=== PATIENT | female | born 1955 | race Caucasian/White ===

== ENCOUNTER 2016-11-22 21:24 | Emergency (ER) | payer OTHER ==
--- NOTE | 2016-11-22 22:50 | DIAGNOSTIC IMAGING REPORT ---
PROCEDURE: CT HEAD WITHOUT CONTRAST INDICATION: TRAUMA/INJURY TECHNIQUE: Noncontrast axial images with sagittal and coronal reformations. COMPARISON: None. FINDINGS: There is moderate extracranial soft tissue swelling and hematoma over the right parietal scalp. No evidence of skull fracture. Brain and ventricles are normal. No evidence of an acute process or hemorrhage. Sinuses and mastoids are normal. IMPRESSION: 1. Moderate extracranial soft tissue swelling and hematoma over the right parietal scalp. 2. Otherwise negative head CT. No evidence of intracranial injury. 3. Findings discussed with MOISE Gibbs at [address] scans at this facility use dose modulation, iterative reconstruction, and/or weight-based dosing when appropriate to reduce radiation dose to as low as reasonably achievable.
--- NOTE | 2016-11-22 22:54 | ED ORDER SUMMARY ---
..... Patient: JUVENAL TRACY OrderSheet [facility] VisitID: [id number] [address] [place] [address] 61y, F Registration Date/Time: 11/22/2016 ORDER SHEET Weight: 142.4 kg (stated) Allergies: Codeine, Demerol, Reglan GENERAL ORDERS: CT Head wo Cont Urgent (22:24 11/22/2016 EKoroleva P.A.-C) (Ack 22:29 Constanza [facility] Metal Cut Off Saw Operator) (22:50 MCampbell) Vitals (22:47 11/22/2016 EKoroleva P.A.-C) (22:56 DDavis R.N.) MEDICATION ORDERS: Tylenol PO 650 mg (NOW) (22:26 11/22/2016 EKoroleva P.A.-C) (Ack 22:28 DDavis R.N.) (22:41 DDavis R.N.) IV FLUIDS: ORDER SHEET NOTES: [Electronically signed by Jasmyn RamirezALuh-C (23:02 11/22/2016)] [Electronically signed by Zaire Alves R.N. (23:07 11/22/2016)] [Electronically locked/signed by Zaire Alves R.N. (23:07 11/22/2016)]
--- NOTE | 2016-11-22 22:54 | ED NURSING NOTES ---
Clinical Report - Nurses [facility] [address] [place] [address] 11/22/2016 21:24 Patient: JUVENAL TRACY TRIAGE Triage time 22:13. Acuity: LEVEL 4. Chief Complaint: FALL OFF A CHAIR. Alert. No acute distress. SEPSIS SCREEN: Sepsis Screen. Negative (no infection suspected/documented). AL COMA SCORE: [place] Coma Scale: 15- eyes open spontaneously (4); best verbal response- oriented x 4 (5); best motor response- obeys commands (6). --22:19 Zaire Alves R.N. 22:13 11/22/16. BP: 210/97. HR: 77. RR: 18 (regular, unlabored and normal). O2 saturation: 96% on room air. Temp: 98.3 F (oral). Pain level now: 0/10. Additional comments: denies pain. --22:19 Zaire Alves R.N. Weight: 142.4 kg stated. Height/Length: 62 inches Per Patient. BMI: 57.5. --22:14 Zaire Alves R.N. Medications NexIUM Oral. Singulair Oral. --22:17 Zaire Alves R.N. Albuterol Sulfate Inhalation. --22:17 Zaire Alves R.N. Allergies Codeine.(angioedema, itching) Demerol.(itching) Reglan. (restless) --22:16 Zaire Alves R.N. History Arrived by private vehicle. Historian: patient. Accompanied by family. This occurred today (2100). ( hit head on a "plastic table", swelling and redness to superior scalp, no bleeding, denies other injuries). No loss of consciousness. No alteration in mental status, dizziness, neck pain, back pain or trouble walking. No limited ROM present or difficulty breathing. 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 PAST MEDICAL HX: Hypertension. No history of diabetes mellitus, heart disease or stroke. SOCIAL HX: Never smoker. No alcohol use or drug use. SELF HARM ASSESSMENT: A self harm assessment was performed. The patient answered "no" to the question "Have you recently felt down, depressed, or hopeless?", "Have you noticed less interest or pleasure in doing things?", "Do you have thoughts of harming or killing yourself?", "Are you here because you tried to hurt yourself?", "Have you ever tried to hurt yourself before today?" and "Have you recently had thoughts about harming or killing others?". NUTRITIONAL RISK ASSESSMENT: The nutritional risk assessment revealed no deficiencies. FUNCTIONAL ASSESSMENT: Functional assessment: no impairments noted. LEARNING NEEDS ASSESSMENT: The learning needs assessment revealed no barriers. SKIN INTEGRITY ASSESSMENT: Skin integrity risk assessment completed. No skin integrity risk identified. --22:19 Zaire Alves R.N. PROBLEMS: Gastroesophageal Reflux. COPD - Chronic Obstructive Pulmonary Disease. Sprain. Hypertension. Asthma. Reflux. --22:17 Zaire Alves R.N. ADDITIONAL SURGERIES: Cholecystectomy. Hysterectomy. Oophorectomy. Shoulder Surgery. --22:17 Zaire Alves R.N. Interventions ID and allergy band on patient. To treatment room. --22:19 Zaire Alves R.N. PHYSICAL ASSESSMENT GENERAL / NEURO / PSYCH: Alert. Oriented X 4. Appears in no acute distress. RESPIRATORY: Respirations not labored. Chest nontender. CVS: Capillary refill less than 2 seconds. GI / : Abdomen soft. SKIN: Skin intact. Skin is warm and dry. --22:20 Zaire Alves R.N. NURSING PROGRESS NOTES Cold pack applied. Reassurance given. Two patient identifiers checked. Call light placed in reach. Side rails up x 1. Bed placed in lowest position. Brakes of bed on. Patient ready for evaluation- chart flagged. Patient waiting for evaluation. --22:20 Zaire Alves R.N. 22:31 11/22/2016 Tylenol (Acetaminophen) PO 650 mg given. Allergies verified and confirmed 5 rights. --22:41 Zaire Alves R.N. 22:50 11/22/16. BP: 183/81. --22:55 Milan Parnell. DISPOSITION / DISCHARGE Departure time: 23:07. No learning barriers present. Discharge instructions provided and reviewed with the patient. Reviewed warnings. Reviewed medication(s) side effects, precautions, dosing and course information. Prescription(s) given to the patient. Treatments reviewed. Reviewed referrals for followup. Patient verbalized understanding. Written instructions provided in [place]. The patient was discharged home and accompanied by spouse. She left the Emergency Department ambulatory and via private vehicle. Rivet Bucker driving. --23:07 Zaire Alves R.N. 23:07 11/22/16. RR: 18. O2 saturation: 96% on room air. Pain level now: 0/10. 22:50 11/22/16. BP: 183/81. --23:07 Zaire Alves R.N. Locked/Released at 11/22/2016 23:07 by Zaire Alves R.N.
--- NOTE | 2016-11-22 22:54 | ED ORDER SUMMARY ---
..... Patient: JUVENAL TRACY OrderSheet [facility] VisitID: [id number] [address] [place] [address] 61y, F Registration Date/Time: 11/22/2016 ORDER SHEET Weight: 142.4 kg (stated) Allergies: Codeine, Demerol, Reglan GENERAL ORDERS: CT Head wo Cont Urgent (22:24 11/22/2016 EKoroleva P.A.-C) (Ack 22:29 [facility] Gluing Machine Operator Electronic) (22:50 MCampbell) Vitals (22:47 11/22/2016 EKoroleva P.A.-C) (22:56 DDavis R.N.) MEDICATION ORDERS: Tylenol PO 650 mg (NOW) (22:26 11/22/2016 EKoroleva P.A.-C) (Ack 22:28 DDavis R.N.) (22:41 DDavis R.N.) IV FLUIDS: ORDER SHEET NOTES: [Electronically signed by Jasmyn RamirezALuh-C (23:02 11/22/2016)] [Electronically signed by Zaire Alves R.N. (23:07 11/22/2016)] [Electronically locked/signed by Zaire Alves R.N. (23:07 11/22/2016)]
--- NOTE | 2016-11-22 22:54 | ED NURSING NOTES ---
Clinical Report - Nurses [facility] [address] [place] [address] 11/22/2016 21:24 Patient: JUVENAL TRACY TRIAGE Triage time 22:13. Acuity: LEVEL 4. Chief Complaint: FALL OFF A CHAIR. Alert. No acute distress. SEPSIS SCREEN: Sepsis Screen. Negative (no infection suspected/documented). AL COMA SCORE: [place] Coma Scale: 15- eyes open spontaneously (4); best verbal response- oriented x 4 (5); best motor response- obeys commands (6). --22:19 Zaire Alves R.N. 22:13 11/22/16. BP: 210/97. HR: 77. RR: 18 (regular, unlabored and normal). O2 saturation: 96% on room air. Temp: 98.3 F (oral). Pain level now: 0/10. Additional comments: denies pain. --22:19 Zaire Alves R.N. Weight: 142.4 kg stated. Height/Length: 62 inches Per Patient. BMI: 57.5. --22:14 Zaire Alves R.N. Medications NexIUM Oral. Singulair Oral. --22:17 Zaire Alves R.N. Albuterol Sulfate Inhalation. --22:17 Zaire Alves R.N. Allergies Codeine.(angioedema, itching) Demerol.(itching) Reglan. (restless) --22:16 Zaire Alves R.N. History Arrived by private vehicle. Historian: patient. Accompanied by family. This occurred today (2100). ( hit head on a "plastic table", swelling and redness to superior scalp, no bleeding, denies other injuries). No loss of consciousness. No alteration in mental status, dizziness, neck pain, back pain or trouble walking. No limited ROM present or difficulty breathing. 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 PAST MEDICAL HX: Hypertension. No history of diabetes mellitus, heart disease or stroke. SOCIAL HX: Never smoker. No alcohol use or drug use. SELF HARM ASSESSMENT: A self harm assessment was performed. The patient answered "no" to the question "Have you recently felt down, depressed, or hopeless?", "Have you noticed less interest or pleasure in doing things?", "Do you have thoughts of harming or killing yourself?", "Are you here because you tried to hurt yourself?", "Have you ever tried to hurt yourself before today?" and "Have you recently had thoughts about harming or killing others?". NUTRITIONAL RISK ASSESSMENT: The nutritional risk assessment revealed no deficiencies. FUNCTIONAL ASSESSMENT: Functional assessment: no impairments noted. LEARNING NEEDS ASSESSMENT: The learning needs assessment revealed no barriers. SKIN INTEGRITY ASSESSMENT: Skin integrity risk assessment completed. No skin integrity risk identified. --22:19 Zaire Alves R.N. PROBLEMS: Gastroesophageal Reflux. COPD - Chronic Obstructive Pulmonary Disease. Sprain. Hypertension. Asthma. Reflux. --22:17 Zaire Alves R.N. ADDITIONAL SURGERIES: Cholecystectomy. Hysterectomy. Oophorectomy. Shoulder Surgery. --22:17 Zaire Alves R.N. Interventions ID and allergy band on patient. To treatment room. --22:19 Zaire Alves R.N. PHYSICAL ASSESSMENT GENERAL / NEURO / PSYCH: Alert. Oriented X 4. Appears in no acute distress. RESPIRATORY: Respirations not labored. Chest nontender. CVS: Capillary refill less than 2 seconds. GI / : Abdomen soft. SKIN: Skin intact. Skin is warm and dry. --22:20 Zaire Alves R.N. NURSING PROGRESS NOTES Cold pack applied. Reassurance given. Two patient identifiers checked. Call light placed in reach. Side rails up x 1. Bed placed in lowest position. Brakes of bed on. Patient ready for evaluation- chart flagged. Patient waiting for evaluation. --22:20 Zaire Alves R.N. 22:31 11/22/2016 Tylenol (Acetaminophen) PO 650 mg given. Allergies verified and confirmed 5 rights. --22:41 Zaire Alves R.N. 22:50 11/22/16. BP: 183/81. --22:55 Milan Parnell. DISPOSITION / DISCHARGE Departure time: 23:07. No learning barriers present. Discharge instructions provided and reviewed with the patient. Reviewed warnings. Reviewed medication(s) side effects, precautions, dosing and course information. Prescription(s) given to the patient. Treatments reviewed. Reviewed referrals for followup. Patient verbalized understanding. Written instructions provided in [place]. The patient was discharged home and accompanied by spouse. She left the Emergency Department ambulatory and via private vehicle. Aerial Photographer driving. --23:07 Zaire Alves R.N. 23:07 11/22/16. RR: 18. O2 saturation: 96% on room air. Pain level now: 0/10. 22:50 11/22/16. BP: 183/81. --23:07 Zaire Alves R.N. Locked/Released at 11/22/2016 23:07 by Zaire Alves R.N.
--- NOTE | 2016-11-22 22:54 | ED CLINICAL REPORT ---
Clinical Report - Physicians/Mid Levels [facility] [address] [place] [address] 11/22/2016 21:24 Patient: JUVENAL TRACY Time Seen: 22:26 Nov 22 2016. Arrived- By private vehicle. Historian- patient and family. HISTORY OF PRESENT ILLNESS Chief Complaint: INJURY TO HEAD. Location of injuries- head. The injury occurred just prior to arrival. Occurred at home. The patient sustained a blow. Fell. The patient complains of mild pain and moderate pain. The patient sustained a blow to the head. No neck pain or loss of consciousness. Not dazed. (Patient was in a rolling chair, when such found, and she sustained injury to her head, also injury from her head and a table as she landed on the ground for about 2 feet. She denies any neck pain.). REVIEW OF SYSTEMS No hearing loss or bladder dysfunction. All systems otherwise negative, except as recorded above. SOCIAL HISTORY Never smoker. No alcohol use or drug use. ADDITIONAL NOTES The nursing notes have been reviewed. PHYSICAL EXAM Vital Signs: 11/22/2016 22:13 BP: 210/97. HR: 77. RR: 18. O2 saturation: 96%. Temp: 98.3 F. Pain level now: 0/10. Appearance: Alert. No backboard or C-collar. Head: Vertex: mild tenderness. No ecchymosis, puncture wound or foreign body. ENT: No dental injury. No hemotympanum. Nose: No laceration. No tenderness over the nose. Neck: Painless ROM. Neck non-tender. Posterior neck: No tenderness or swelling. CVS: Heart sounds normal. Rhythm normal. Respiratory: Breath sounds normal. Chest nontender. No chest wall injury. Back: No tenderness. Extremities: Pelvis stable. Extremities atraumatic. Neuro: [place] Coma Scale: 15- eyes open spontaneously (4); best verbal response- oriented x 3 (5); best motor response- obeys commands (6). Oriented X 3. Mood/affect normal. Speech normal. No motor deficit. No sensory deficit. LABS, X-RAYS, AND EKG CT Head: (IMPRESSION: 1. Moderate extracranial soft tissue swelling and hematoma over the right parietal scalp. 2. Otherwise negative head CT. No evidence of intracranial injury. 3. Findings discussed with Malorie Ramirez, PAC at [address] scans at this facility use dose modulation, iterative reconstruction, and/or weight-based dosing when appropriate to reduce radiation dose to as low as reasonably achievable. Electronically Final signed by:Alexys Abel MD 11/22/2016 10:47:27 PM). PROGRESS AND PROCEDURES Course of Care: No cervical spine tenderness, no headache, will f/u with pcp in regard to bp. No sob/ chest pain. NO other injury. mechanical fall. here with . NO other complaints. 11/22/2016 22:50 BP: 183/81. Disposition: Discharged. CLINICAL IMPRESSION Minor closed head injury. No loss of consciousness. No concussion. Hypertension. Single hematoma to the scalp. INSTRUCTIONS Apply ice. No strenuous activity. Rest. Prescription Medications: Zofran 4 mg: Take 1 orally every six hours as needed for nausea/vomiting. Dispense ten (10). No refills. Substitution is permissible. OTC Medications: Tylenol (available over the counter): take according to label instructions. Follow-up: Follow up with your doctor in as needed. (Electronically signed by Jasmyn Ramirez P.A.-C 11/22/2016 23:02)
--- NOTE | 2016-11-22 23:08 | ED MAR SUMMARY ---
..... Medication Administration Record [facility] [address] [place] [address] Patient: JUVENAL TRACY Visit ID: [id number] 61y, F Weight: 142.4 kg Height/Length: 62 in BMI: 57.5 ALLERGIES: Codeine, Demerol, Reglan Given 22:31 11/22/2016 Zaire Alves R.N. Medication Administered: TYLENOL [PO] (ACETAMINOPHEN), Dose: 650 mg PO. Medication Ordered: Tylenol PO 650 mg (NOW).
--- NOTE | 2016-11-22 23:08 | ED MAR SUMMARY ---
..... Medication Administration Record [facility] [address] [place] [address] Patient: JUVENAL TRACY Visit ID: [id number] 61y, F Weight: 142.4 kg Height/Length: 62 in BMI: 57.5 ALLERGIES: Codeine, Demerol, Reglan Given 22:31 11/22/2016 Zaire Alves R.N. Medication Administered: TYLENOL [PO] (ACETAMINOPHEN), Dose: 650 mg PO. Medication Ordered: Tylenol PO 650 mg (NOW).
--- NOTE | 2016-11-22 23:08 | ED MED RECONCILIATION SUMMARY ---
Patient: JUVENAL TRACY Medication Reconciliation Report [facility] VisitID: [id number] [place] [address] 61y, F Registration Date/Time: 11/22/2016 Weight: 142.4 kg Height/Length: 62 in. BMI: 57.5 ALLERGIES: Codeine, Demerol, Reglan The patient's Home Medications are listed below: THE FOLLOWING MEDICATIONS NEED TO BE RECONCILED: Albuterol Sulfate Inhalation NexIUM Oral Singulair Oral The source(s) of the original Home Medication information: Not obtained. The following Medications were given to the patient in the Emergency Department: Tylenol [PO] PO 650 mg, administered: 11/22/2016 10:31:00 PM The following Medications were prescribed to the patient: Zofran 4 mg: Take 1 orally every six hours as needed for nausea/vomiting. Dispense ten (10). No refills. Substitution is permissible. -- Jasmyn Ramirez, P.A.-Renata Tylenol (available over the counter): take according to label instructions. -- Jasmyn Ramirez, P.A.-C
--- NOTE | 2016-11-22 23:08 | ED MED RECONCILIATION SUMMARY ---
Patient: JUVENAL TRACY Medication Reconciliation Report [facility] VisitID: [id number] [place] [address] 61y, F Registration Date/Time: 11/22/2016 Weight: 142.4 kg Height/Length: 62 in. BMI: 57.5 ALLERGIES: Codeine, Demerol, Reglan The patient's Home Medications are listed below: THE FOLLOWING MEDICATIONS NEED TO BE RECONCILED: Albuterol Sulfate Inhalation NexIUM Oral Singulair Oral The source(s) of the original Home Medication information: Not obtained. The following Medications were given to the patient in the Emergency Department: Tylenol [PO] PO 650 mg, administered: 11/22/2016 10:31:00 PM The following Medications were prescribed to the patient: Zofran 4 mg: Take 1 orally every six hours as needed for nausea/vomiting. Dispense ten (10). No refills. Substitution is permissible. -- Jasmyn Ramirez, P.A.-Renata Tylenol (available over the counter): take according to label instructions. -- Jasmyn Ramirez, P.A.-C
--- NOTE | 2016-11-22 23:08 | ED DISCHARGE INSTRUCTIONS ---
Patient: JUVENAL TRACY General Instructions [facility] VisitID: [id number] [place] [address] 61y, F Registration Date/Time: 11/22/2016 Minor closed head injury. No loss of consciousness. No concussion. Hypertension. Single hematoma to the scalp. INSTRUCTIONS Apply ice. No strenuous activity. Rest. Prescription Medications: Zofran 4 mg: Take 1 orally every six hours as needed for nausea/vomiting. Dispense ten (10). No refills. Substitution is permissible. OTC Medications: Tylenol (available over the counter): take according to label instructions. Follow-up: Follow up with your doctor in as needed. ADDITIONAL INFORMATION Head Injury, No Wake-Up (Adult) You have had a head injury. It does not appear serious at this time. Symptoms of a more serious problem (concussion, bruising, or bleeding in the brain) may appear later. Therefore, watch for the WARNING SIGNS listed below. Home Care: Your healthcare provider will tell you whether its okay to drive. If so, you can drive yourself home. For the next day or so, be careful when driving or using heavy machinery until you are sure you have no delayed symptoms. During the next 24 hours someone must stay with you to check for the signs below. It is not necessary to stay awake or be awakened during the night. If you have swelling of the face or scalp, apply an ice pack (ice cubes in a plastic bag, wrapped in a towel) for 20 minutes. Do this every 1-2 hours until the swelling starts to go down. Do not use aspirin or ibuprofen (Motrin, Advil) after a head injury.You may use acetaminophen (Tylenol)to control pain, unless another pain medicine was prescribed. [NOTE: If you have chronic liver or kidney disease or ever had a stomach ulcer or GI bleeding, talk with your doctor before using these medicines.] For the next 24 hours: Do not take alcohol, sedatives or medicines that make you sleepy. Avoid strenuous activities. No lifting or straining. If you have had any symptoms of a concussion today (nausea, vomiting, dizziness, confusion, headache, memory loss or if you were knocked out), do not return to sports or any activity that could result in another head injury until all symptoms are gone and you have been cleared by your doctor. A second head injury before fully recovering from the first one can lead to serious brain injury. Follow Up with your doctor if symptoms are not improving after 24 hours, or as directed. [NOTE: A radiologist will review any X-rays or CT scans that were taken. We will notify you of any new findings that may affect your care.] Get Prompt Medical Attention if any of the followingWARNING SIGNS occur: Repeated vomiting Severe or worsening headache or dizziness Unusual drowsiness, or unable to awaken as usual Confusion or change in behavior or speech, memory loss, blurred vision Convulsion (seizure) Increasing scalp or face swelling Redness, warmth or pus from the swollen area Fluid drainage or bleeding from the nose or ears Hematoma A hematoma is caused by an injury with damage to small blood vessels. This causes blood to leak into the tissues. Blood forms a pocket under the skin that swells and looks like a purplish patch. Gradually the blood in the hematoma is absorbed back into the body. The swelling and pain of the hematoma will go away. This takes from one to four weeks, depending on the size of the hematoma. The skin over the hematoma may turn bluish then brown and yellow as the blood is dissolved and absorbed. Home Care: Limit motion of the joints near the hematoma. If the hematoma is large and painful, you should avoid sports and other vigorous physical activity until the swelling and pain goes away. Apply an ice pack (ice cubes in a plastic bag, wrapped in a towel) over the injured area for 20 minutes every 1-2 hours the first day. You should continue with ice packs 3-4 times a day for the next two days. Continue the use of ice packs for relief of pain and swelling as needed. You may use acetaminophen (Tylenol) or ibuprofen (Motrin, Advil) to control pain, unless another pain medicine was prescribed. [ NOTE : If you have chronic liver or kidney disease or ever had a stomach ulcer or GI bleeding, talk with your doctor before using these medicines.] Follow Up with your doctor or as advised by our staff. [ NOTE: A radiologist will review any X-rays that were taken. We will notify you of any new findings that may affect your care.] Get Prompt Medical Attention if any of the following occur: Redness around the hematoma Increase in pain or warmth in the hematoma Increase in size of the hematoma Fever of 100.4F (38C) or higher, or as directed by your healthcare provider If the hematoma is on the arm or leg, watch for: Increased swelling or pain in the extremity Numbness or tingling or blue color of the hand or foot Contusion,Soft Tissue You have a CONTUSION, which is a bruise with swelling and some bleeding under the skin. There are no broken bones. This injury takes a few days to a few weeks to heal. Home Care: 1) Keep the injured part elevated to reduce pain and swelling. This is especially important during the first 48 hours. 2) Make an ice pack (ice cubes in a plastic bag, wrapped in a towel) and apply for 20 minutes every 1-2 hours the first day. Continue this 3-4 times a day until the pain and swelling goes away. 3) You may use acetaminophen (Tylenol) or ibuprofen (Motrin, Advil) to control pain, unless another pain medicine was prescribed. [ NOTE : If you have chronic liver or kidney disease or ever had a stomach ulcer or GI bleeding, talk with your doctor before using these medicines.] Follow Up with your doctor or this facility if you are not improving within the next THREE days. [NOTE: If X-rays were taken, they will be reviewed by a radiologist. You will be notified of any new findings that may affect your care.] Get Prompt Medical Attention if any of the following occur: -- Pain or swelling increases -- Injured arm or leg becomes cold, blue, numb or tingly -- Redness, warmth or drainage from the skin You have been given the following additional information: HEAD INJURY, No Wake-Up (Adult) Hematoma Contusion, Soft Tissue No strenuous activity. Rest. (Electronically signed by Jasmyn Ramirez P.A.-C 11/22/2016 23:02)
== END 2016-11-22 23:05 | disposition home or self-care (01) ==
LOC: ED SRH 21:24
DX: S00.03XA Contusion of scalp, initial encounter (principal); I10 Essential (primary) hypertension; W01.190A Fall on same level from slipping, tripping and stumbling with subsequent striking against furniture, initial encounter; Y93.9 Activity, unspecified; Y92.009 Unspecified place in unspecified non-institutional (private) residence as the place of occurrence of the external cause; Y99.9 Unspecified external cause status; J44.9 Chronic obstructive pulmonary disease, unspecified; Z88.8 Allergy status to other drugs, medicaments and biological substances; K21.9 Gastro-esophageal reflux disease without esophagitis; J45.909 Unspecified asthma, uncomplicated